=== PATIENT | female | born 1945 | race Caucasian/White ===

== ENCOUNTER → 2017-11-10 | Outpatient (CLI) | payer OTHER ==
[2016-06-26 12:42] VITALS: BP 162/91
--- NOTE | 2017-11-10 11:19 | RAD ---
HISTORY: Chronic knee pain. Study: Three views of the left knee. Comparison: None. Findings: Moderate tricompartmental osteoarthritis. Moderate-sized knee effusion. No acute fracture dislocation . IMPRESSION: Chronic findings as above. Reported By:
--- NOTE | 2017-11-10 11:20 | RAD ---
HISTORY: Low back pain. Radiculopathy. Study: Lumbar spine with obliques Comparison: MRI scan 01/17/2014, plain films 10/28/2016 Findings: Mild convex left lumbar scoliosis is noted. Hxub-[id number] osteopenia is noted. Five lumbar type vertebra present. Moderate lateral spurring is noted predominating on the right. Agol-yt-npvlldhy f acet arthropathy is noted throughout with moderate at L4/L5 and L5/S1. Mild degenerative changes pre sent in the sacroiliac joints. The lateral view demonstrates moderate anterior wedging of L3, unchan ged. Moderate disc space narrowing is noted at L3/L4. Mild anterior spurring is present multiple le vels. No pars defects are identified. Moderate vascular calcification is noted. IMPRESSION: 1. Lumbar spondylosis as described above. 2. No acute bony abnormalities are identified. Reported By:
--- NOTE | 2017-11-10 11:20 | RAD ---
HISTORY: Chronic right knee pain. Study: Three views of the right knee. Comparison: Right knee series dated November 27, 2013. Findings: Moderate tricompartmental osteoarthritis. No significant knee effusion. No acute fracture or dislocat ion. IMPRESSION: Chronic findings as above. Reported By:
== END ==
LOC: RAD 09:44
PROVIDERS: ATTEND Nurse Practitioner Family
DX: M54.17 Radiculopathy, lumbosacral region (principal); M25.561 Pain in right knee; M25.562 Pain in left knee
CPT/HCPCS: 72110; 73564

== ENCOUNTER 2023-08-26 16:26 | Observation (INO) ==
--- NOTE | 2023-08-26 17:10 | DR.CONMALE ---
HPI Time Seen Time Seen by Provider: 08/26/23 17:11 Complaint Chief Complaint Doctors Comments: 78-year-old female presents for evaluation. Complains of constipation for the past 3 weeks. Patient states not that unusual for her to go for a long time, but she is having increasing discomfort of her a bdomen and rectal area. She feels the stool may be too big to pass easily. Patient has chronic nausea, no change in that. She denies any vomiting. She denies any fever, chills, URI symptoms. No bladder issues. COVID-19 Coronavirus risk:travel/contact w/high risk person: No Has patient experienced Coronavirus symptoms: No Reviewed Nurses Notes Review: Yes Source History Provided: Patient Timing Onset of Chief Complaint: 08/05/23 PMH PMH Past Medical History: Yes Past Medical History: Anemia, Anxiety, Depression, Diabetes, Dyslipidemia, GERD and Hypertension Past Surgical History: Yes Surgical History: Appendectomy, Cholecystectomy, Hysterectomy and Ortho Surgery Family History History of Family Medical Conditions: Yes Family Medical History: Cancer, [place], Coronary Artery Disease and Hypertension Social History Does patient currently use any type of tobacco product: No Have you used tobacco products in the last 12 months: No Type of Tobacco Use: None Does any household member use tobacco: No Alcohol Use: None Do you use any recreational Drugs:: No Lives With: Family Lives Where: Home Travel Risk Coronavirus risk:travel/contact w/high risk person: No Has patient experienced Coronavirus symptoms: No Infectious screening In the last 2 months have you had wt loss of >10#?: NO Have you had fever, night sweats or hemotysis?: No Have you traveled outside the country in the last 6 months?: No Isolation: Standard ROS Review of Systems Constitutional: No Symptoms Reported Eyes: No Symptoms Reported ENTM: No Symptoms Reported Respiratoy: No Symptoms Reported Cardiovascular: No Symptoms Reported Gastrointestinal/Abdominal: See HPI Genitourinary: No Symptoms Reported Neurological: No Symptoms Reported Musculoskeletal: No Symptoms Reported Integumentary: No Symptoms Reported Hematologic/Lymphatic: No Symptoms Reported All Other Systems: Reviewed and Negative PE Vital Signs Vital Signs: Temp Pulse Resp BP Pulse Ox O2 Del Method 08/26/23 19:00 100 H 20 166/78 98 08/26/23 18:18 158/90 08/26/23 18:18 100 H 96 08/26/23 17:28 98.2 F 102 H 21 97 08/26/23 16:54 Room Air General General Appearance: Alert and In No Apparent Distress Eyes Eye exam: PERRL and EOMI Neck Neck Exam: Normal Inspection Respiratory Respiratory Exam: Normal Lung Sounds Bilat; negative Accessory Muscle Use or Respiratory Distress Cardiovascular Cardiovascular Exam: Regular Rate, Normal Rhythm and Normal Heart Sounds Gastrointestinal Abdominal Exam: Normal Bowel Sounds, Soft and Tenderness (across lower abdomen, no rebound. ) Extremities Extremities Exam: Normal Inspection; negative Edema Neurological Neurological Exam: Alert, Oriented X3 and CN II-XII Intact; negative Motor Sensory Deficit Skin Skin Exam: Warm and Dry COURSE Treatment Treatment: 78-year-old female presents with constipation for the past 3 weeks, now having abdominal and rectal discomfort. In no distress. 1739 - Rectal exam shows impacted stool. Partially disimpacted manually by me, with nurse shredded filler cutter operator. Cannnot remove all the stool, channel made for enema. Recommend hydration, given IV fluids, check baseline labs. Patient may require admission for further hydration and possible disimpaction via scope in the AM. 1837 - no good dramatic results with enema. Small amount of stool out. Patient with fecal impaction. Recommend admission for further hydration and possible more aggressive disimpaction in the a.m. via scope. Discussed with Dr. August, covering for Dr. Edwards, accepts admission. Consulted with Dr Jensen, will see in the am. Will order a CT of the abd/pelvis, with PO/IV contrast, to r/o underlying pathology, & hopefully be therapeutic with the oral contrast. ROR Labs Reviewed Laboratory Results Reviewed?: Yes 08/26/23 18:10 08/26/23 18:10 Laboratory: WBC 13.9 X10^3/uL (3.6-10.0) H 08/26/23 18:10 RBC 4.49 X10^6/uL (3.5-5.4) 08/26/23 18:10 Hgb 13.2 g/dL (12.0-16.0) 08/26/23 18:10 Hct 40.6 % (36.0-47.0) 08/26/23 18:10 MCV 90.4 fL (80.0-100.0) 08/26/23 18:10 MCH 29.5 pg (27.0-34.0) 08/26/23 18:10 MCHC 32.6 g/dL (33.0-35.0) L 08/26/23 18:10 RDW 13.1 % (11.6-16.5) 08/26/23 18:10 Plt Count 397 X10^3/uL (150.0-450.0) 08/26/23 18:10 MPV 7.3 fL (7.4-11.0) L 08/26/23 18:10 Neut % (Auto) 81.4 % (42.0-75.0) H 08/26/23 18:10 Lymph % (Auto) 12.4 % (21.0-51.0) L 08/26/23 18:10 [place] % (Auto) 5.4 % (0.0-13.0) 08/26/23 18:10 Eos % (Auto) 0.2 % (0.9-2.9) L 08/26/23 18:10 Baso % (Auto) 0.6 % (0.2-1.0) 08/26/23 18:10 Neut # (Auto) 11.3 x10^3/uL (2.2-4.8) H 08/26/23 18:10 Lymph # (Auto) 1.7 X10^3/uL (1.3-2.9) 08/26/23 18:10 [place] # (Auto) 0.8 x10^3/uL (0.3-0.8) 08/26/23 18:10 Eos # (Auto) 0.0 x10^3/uL (0.0-0.2) 08/26/23 18:10 Baso # (Auto) 0.1 X10^3/uL (0.0-0.1) 08/26/23 18:10 Absolute Nucleated RBC 0.0 /100WBC 08/26/23 18:10 Sodium 140 mmol/L (136-145) 08/26/23 18:10 Corrected Sodium TNP 08/26/23 18:10 Potassium 4.2 mmol/L (3.5-5.1) 08/26/23 18:10 Chloride 104 mmol/L (98-107) 08/26/23 18:10 Carbon Dioxide 28.7 mmol/L (21-32) 08/26/23 18:10 BUN 18 mg/dL (7-18) 08/26/23 18:10 Creatinine 0.90 mg/dL (0.55-1.02) 08/26/23 18:10 Est GFR (MDRD) Af Amer > 60 (>60) 08/26/23 18:10 Est GFR (MDRD) Non-Af > 60 (>60) 08/26/23 18:10 Glucose 102 mg/dL (65-99) H 08/26/23 18:10 Calcium 9.2 mg/dL (8.5-10.1) 08/26/23 18:10 Corrected Calcium 10.1 mg/dL (8.5-10.1) 08/26/23 18:10 Total Bilirubin 0.50 mg/dL (0.2-1.0) 08/26/23 18:10 AST 33 Units/L (15-37) 08/26/23 18:10 ALT 39 Units/L (12-78) 08/26/23 18:10 Alkaline Phosphatase 159 Units/L (46-116) H 08/26/23 18:10 Total Protein 6.8 g/dL (6.4-8.2) 08/26/23 18:10 Albumin 2.9 g/dL (3.4-5.0) L 08/26/23 18:10 Globulin 3.9 g/dL (2.5-4.5) 08/26/23 18:10 Albumin/Globulin Ratio 0.7 Ratio (1.1-2.1) L 08/26/23 18:10 Lipase 23 Units/L (16-77) 08/26/23 18:10 Labs acceptable. Opioid Opioid Risk Tool Age (Josh box if 16-45): No History of Preadolescent Sexual Abuse: No Total: 0 Total Score Risk Category: Low Risk Copyright: Laron BRICENO predicting aberrant behaviors Discharge Plan Diagnosis Discharge Problem: Fecal impaction of colon Discharge Plan Patient Disposition: 09 ADMITTED INPATIENT Condition: Stable Prescriptions: No Action montelukast 10 mg tablet 10 mg PO QDAY Qty: 90 0RF pregabalin 75 mg capsule 75 mg PO QDAY 30 Days Qty: 30 0RF duloxetine 60 mg capsule,delayed release(DR/EC) 60 mg PO BID Qty: 60 3RF famotidine 20 mg tablet 20 mg PO BID PRN (Reason: gerd) Qty: 60 3RF Linzess 72 mcg capsule 72 mcg PO QDAY 30 Days Qty: 30 3RF verapamil 120 mg tablet extended release 120 mg PO BID 90 Days Qty: 180 0RF Rx Instructions: FreeTextSi Tablet ER two times daily; Refills: 1; Provider: Grace Barrios oxybutynin chloride 10 mg tablet extended release 24hr 10 mg PO QDAY Qty: 90 1RF hydrocodone-acetaminophen 10-325 mg tablet 1 tab PO TID MDD 3 PRN (Reason: pain) 30 Days Qty: 90 0RF atorvastatin 40 mg tablet 40 mg PO QPM Qty: 90 1RF buspirone 5 mg tablet 5 mg PO BID 30 Days Qty: 60 0RF Rx Instructions: FreeTextSi (one) Tablet two times daily; Refills: 1; Provider: Grace Barrios lisinopril 20 mg tablet 20 mg PO QDAY Qty: 90 0RF Mounjaro 7.5 mg/0.5 mL pen injector 7.5 mg SUBCUT WEEKLY Patient Comments: [NO ORIGINAL SIG] tizanidine 4 mg tablet 4 mg PO BID PRN Health Concerns: Post Hospitalization: new medications and changes needed to prevent readmission or further decline. Pt educated and given instructions on all concerns. Plan of Treatment: Continue with present treatment and follow up plan. Pt is to keep follow up appointment as instructed and take medications as ordered. Orders to Discharge Patient Discharge Orders: Transfer (Routine); Ordered 08/26/23 Ordered By: Logan Nieto Follow ups/Referrals Follow ups/Referrals: Denis Edwards [Primary Care Provider] - 3 days
[2023-08-26] MEDS ORDERED: FLEET ENEMA ADULT ONE (17:38)
[2023-08-26] MEDS ORDERED: NS 1,000 ML IV 1,000 ML ONE (17:41)
[2023-08-26] MEDS: FLEET ENEMA ADULT PR ONE (17:45)
[2023-08-26] MEDS: NS 1,000 ML IV 1,000 ML IV ONE (18:00)
[2023-08-26 18:22] LABS: BASOPHILS # (AUTO) 0.1 X10^3/uL (0.0-0.1); BASOPHILS % (AUTO) 0.6 % (0.2-1.0); EOSINOPHILS % (AUTO) 0.2 % (0.9-2.9); HEMATOCRIT 40.6 % (36.0-47.0); HEMOGLOBIN 13.2 g/dL (12.0-16.0); LYMPHOCYTES # (AUTO) 1.7 X10^3/uL (1.3-2.9); LYMPHOCYTES % (AUTO) 12.4 % (21.0-51.0); MEAN CORPUSCULAR HEMOGLOBIN 29.5 pg (27.0-34.0); MEAN CORPUSCULAR HGB CONC 32.6 g/dL (33.0-35.0); MEAN CORPUSCULAR VOLUME 90.4 fL (80.0-100.0); MEAN PLATELET VOLUME 7.3 fL (7.4-11.0); MONOCYTES # (AUTO) 0.8 x10^3/uL (0.3-0.8); MONOCYTES % (AUTO) 5.4 % (0.0-13.0); NEUTROPHILS # (AUTO) 11.3 x10^3/uL (2.2-4.8); NEUTROPHILS % (AUTO) 81.4 % (42.0-75.0); PLATELET COUNT 397 X10^3/uL (150.0-450.0); RED BLOOD COUNT 4.49 X10^6/uL (3.5-5.4); RED CELL DISTRIBUTION WIDTH 13.1 % (11.6-16.5); WHITE BLOOD COUNT 13.9 X10^3/uL (3.6-10.0)
[2023-08-26 18:30] LABS: ALANINE AMINOTRANSFERASE 39 Units/L (12-78); ALBUMIN 2.9 g/dL (3.4-5.0); ALKALINE PHOSPHATASE 159 Units/L (46-116); ASPARTATE AMINO TRANSFERASE 33 Units/L (15-37); BLOOD UREA NITROGEN 18 mg/dL (7-18); CALCIUM 9.2 mg/dL (8.5-10.1); CARBON DIOXIDE 28.7 mmol/L (21-32); CHLORIDE 104 mmol/L (98-107); COR CA(FOR HYPOALB) 10.1 mg/dL (8.5-10.1); GLUCOSE 102 mg/dL (65-99); LIPASE 23 Units/L (16-77); POTASSIUM 4.2 mmol/L (3.5-5.1); SODIUM 140 mmol/L (136-145); TOTAL PROTEIN 6.8 g/dL (6.4-8.2); eGFR NON BLACK RACES > 60 (>60)
[2023-08-26] MEDS ORDERED: BUSPIRONE 5 MG PO SCH (21:46)
[2023-08-26] MEDS ORDERED: CONSULT PHARMACY - POTASSIUM & MAGNESIUM XX SCH (21:46)
[2023-08-26] MEDS: LIPITOR TAB 40 MG PO SCH (22:14)
[2023-08-26] MEDS: D5 1/2 NS 1,000 ML 1,000 ML IV SCH (22:15)
[2023-08-26] MEDS: CYMBALTA PO SCH (22:15)
--- NOTE | 2023-08-26 22:39 | CT ---
EXAM: CT ABDOMEN AND PELVIS WITH INTRAVENOUS CONTRAST HISTORY: No bowel movement x 21 days. Impacted. TECHNIQUE: Spiral axial CT images are obtained through the abdomen and pelvis with the administration of oral contrast and intravenous contrast. Additional coronal and sagittal reformatted images are re constructed. DOSIMETRY: Total DLP 221.24 mGycm; CTDI 4.14 mGy COMPARISON: None available. FINDINGS: GASTROINTESTINAL TRACT: Status post gastric bypass surgery. No evidence of gross anastomotic dehisce nce seen. There is an approximately 4.7 cm AP by 4.1 cm transverse by 4.3 cm CC hiatal hernia contai nena food debris. Axial image 13; coronal image 28. Abundant fecal material is seen within the large bowel loops and up to 8 cm dilated rectum consistent with constipation and fecal retention. There i s no evidence for bowel herniation, bowel obstruction, appendicitis, colitis or diverticulitis. GENITOURINARY SYSTEM: The kidneys are unremarkable. There is no ureteral calculus or stigmata of obst ructive uropathy. The urinary bladder is grossly unremarkable for a non-dedicated exam. CT ABDOMEN: Status post cholecystectomy. Severe aortoiliac atherosclerotic disease, without aneurysm formation or dissection. Approximately 2.4 cm AP by 1.4 cm transverse by 2.3 cm CC nonspecific righ t adrenal nodule (56 HU), which may represent an adrenal adenoma; DDX includes adrenal adenocarcinoma , metastatic lesion, and pheochromocytoma. Consider follow-up evaluation with dedicated adrenal MRI for further characterization as clinically warranted. The liver, spleen, pancreas, left adrenal gland , and inferior vena cava are within normal limits for a CT scan. There is no intra-abdominal or retr operitoneal lymphadenopathy, free fluid, or free air seen. No abdominal herniation is noted. CT PELVIS: No pelvic sidewall or inguinal lymphadenopathy is seen. No inguinal herniation is noted. No free fluid or free air is seen. BONES AND JOINTS: Severe multilevel DDD is seen throughout the distal thoracic and lumbar spine with lumbar levoscoliosis. Moderate osteoarthritis is seen in both hips. The visualized bony structures are within normal limits. LUNG BASES: The lung bases are clear. There is severe coronary atherosclerosis. There are severe ao rtic and mitral annular calcifications. IMPRESSION: 1. No gross acute abnormality seen. 2. No evidence for pyelonephritis, renal stone disease or obstructive uropathy. 3. Approximately 4.7 cm AP by 4.1 cm transverse by 4.3 cm CC hiatal hernia containing food debris. Axial image 13; coronal image 28. 4. Abundant fecal material is seen within the large bowel loops and up to 8 cm dilated rectum consis tent with constipation and fecal retention. 5. No evidence for bowel herniation, bowel obstruction, appendicitis, colitis or diverticulitis. 6. No free fluid, free air, or lymphadenopathy seen. 7. Approximately 2.4 cm AP by 1.4 cm transverse by 2.3 cm CC nonspecific right adrenal nodule (56 HU ), which may represent an adrenal adenoma; DDX includes adrenal adenocarcinoma, metastatic lesion, an d pheochromocytoma. Axial image 23; coronal image 32. Consider follow-up evaluation with dedicated adrenal MRI for further characterization as clinically warranted. 8. Severe multilevel DDD is seen throughout the distal thoracic and lumbar spine with lumbar levosco liosis. THIS IS AN ELECTRONICALLY VERIFIED FINAL REPORT 08/26/2023 10:35 PM - Electronically signed by Jackie Martinez
[2023-08-26 23:21] VITALS: BMI 25.9
[2023-08-26] MEDS: BUSPAR PO SCH (23:27)
[2023-08-26] MEDS: ZANAFLEX PO PRN (23:27)
[2023-08-26 23:50] LABS: BILIRUBIN,URINE NEGATIVE (NEGATIVE); BLOOD/HEMOGLOBIN,URINE NEGATIVE (NEGATIVE); GLUCOSE, URINE NEGATIVE (NEGATIVE); KETONES,URINE 1+ (NEGATIVE); LEUKOCYTE ESTERASE ,URINE NEGATIVE (NEGATIVE); NITRITES,URINE NEGATIVE (NEGATIVE); PROTEIN,URINE NEGATIVE (NEGATIVE); UROBILINOGEN,URINE NORMAL (NORMAL)
[2023-08-27 00:03] LABS: APPEARANCE,URINE CLEAR (CLEAR); COLOR,URINE YELLOW (YELLOW)
[2023-08-27] MEDS: CALAN SR 120 MG PO SCH (00:44)
[2023-08-27 05:43] LABS: BASOPHILS % (AUTO) 0.3 % (0.2-1.0); EOSINOPHILS % (AUTO) 0.4 % (0.9-2.9); HEMOGLOBIN 11.3 g/dL (12.0-16.0); LYMPHOCYTES # (AUTO) 2.1 X10^3/uL (1.3-2.9); LYMPHOCYTES % (AUTO) 21.6 % (21.0-51.0); MEAN CORPUSCULAR HEMOGLOBIN 29.8 pg (27.0-34.0); MEAN CORPUSCULAR HGB CONC 33.2 g/dL (33.0-35.0); MEAN CORPUSCULAR VOLUME 89.6 fL (80.0-100.0); MEAN PLATELET VOLUME 7.7 fL (7.4-11.0); MONOCYTES # (AUTO) 0.6 x10^3/uL (0.3-0.8); MONOCYTES % (AUTO) 6.3 % (0.0-13.0); NEUTROPHILS # (AUTO) 6.9 x10^3/uL (2.2-4.8); NEUTROPHILS % (AUTO) 71.4 % (42.0-75.0); PLATELET COUNT 371 X10^3/uL (150.0-450.0); RED BLOOD COUNT 3.79 X10^6/uL (3.5-5.4); RED CELL DISTRIBUTION WIDTH 13.1 % (11.6-16.5); WHITE BLOOD COUNT 9.7 X10^3/uL (3.6-10.0)
[2023-08-27 05:48] LABS: ALANINE AMINOTRANSFERASE 26 Units/L (12-78); ALBUMIN 2.2 g/dL (3.4-5.0); ALKALINE PHOSPHATASE 124 Units/L (46-116); ASPARTATE AMINO TRANSFERASE 20 Units/L (15-37); BLOOD UREA NITROGEN 11 mg/dL (7-18); CALCIUM 8.7 mg/dL (8.5-10.1); CARBON DIOXIDE 29.4 mmol/L (21-32); CHLORIDE 103 mmol/L (98-107); COR CA(FOR HYPOALB) 10.1 mg/dL (8.5-10.1); CREATININE 0.59 mg/dL (0.55-1.02); GLUCOSE 85 mg/dL (65-99); POTASSIUM 3.4 mmol/L (3.5-5.1); SODIUM 137 mmol/L (136-145); TOTAL PROTEIN 5.4 g/dL (6.4-8.2); eGFR NON BLACK RACES > 60 (>60)
[2023-08-27] MEDS ORDERED: CONSULT PHARMACY - POTASSIUM & MAGNESIUM XX SCH (07:00)
[2023-08-27] MEDS ORDERED: ZESTRIL TAB 20 MG ONE (08:07)
[2023-08-27] MEDS: D5 1/2 NS + KCL 20 MEQ/L 1,000 ML IV SCH (08:35)
[2023-08-27] MEDS: NS 100 ML IV 100 ML ONE (08:36)
[2023-08-27] MEDS: OMNIPAQUE 350 mg/mL 100 mL BTL 100 ML ONE (08:36)
[2023-08-27] MEDS: ZESTRIL TAB 20 MG PO SCH (08:37)
[2023-08-27] MEDS: LYRICA CAP 75 mg PO SCH (08:37)
[2023-08-27] MEDS: OXYBUTYNIN CHLORIDE ER PO SCH (08:37)
[2023-08-27] MEDS: SINGULAIR TAB 10 MG PO SCH (08:37)
[2023-08-27] MEDS: SUPREP BOWEL PREP KIT PO SCH (13:11)
[2023-08-27] MEDS: LINZESS PO SCH (13:12)
[2023-08-27] MEDS ORDERED: VISTARIL PO PRN (17:45)
[2023-08-27] MEDS: TYLENOL 325 MG TAB PO PRN (18:16)
[2023-08-28] MEDS ORDERED: HIBICLENS WASH ONE (03:45)
[2023-08-28] MEDS: SUPREP BOWEL PREP KIT PO SCH (05:02)
[2023-08-28] MEDS: HIBICLENS WASH EXT ONE (05:02)
[2023-08-28 05:28] LABS: BASOPHILS % (AUTO) 0.2 % (0.2-1.0); EOSINOPHILS # (AUTO) 0.1 x10^3/uL (0.0-0.2); EOSINOPHILS % (AUTO) 1.8 % (0.9-2.9); HEMATOCRIT 33.1 % (36.0-47.0); HEMOGLOBIN 10.9 g/dL (12.0-16.0); LYMPHOCYTES # (AUTO) 2.2 X10^3/uL (1.3-2.9); LYMPHOCYTES % (AUTO) 31.3 % (21.0-51.0); MEAN CORPUSCULAR HEMOGLOBIN 29.5 pg (27.0-34.0); MEAN CORPUSCULAR VOLUME 89.4 fL (80.0-100.0); MEAN PLATELET VOLUME 7.6 fL (7.4-11.0); MONOCYTES # (AUTO) 0.6 x10^3/uL (0.3-0.8); MONOCYTES % (AUTO) 9.3 % (0.0-13.0); NEUTROPHILS % (AUTO) 57.4 % (42.0-75.0); PLATELET COUNT 382 X10^3/uL (150.0-450.0); RED CELL DISTRIBUTION WIDTH 13.2 % (11.6-16.5)
[2023-08-28 05:41] LABS: ALANINE AMINOTRANSFERASE 34 Units/L (12-78); ALBUMIN 2.2 g/dL (3.4-5.0); ALKALINE PHOSPHATASE 115 Units/L (46-116); ASPARTATE AMINO TRANSFERASE 38 Units/L (15-37); BLOOD UREA NITROGEN 7 mg/dL (7-18); CALCIUM 8.5 mg/dL (8.5-10.1); CARBON DIOXIDE 26.2 mmol/L (21-32); CHLORIDE 106 mmol/L (98-107); COR CA(FOR HYPOALB) 9.9 mg/dL (8.5-10.1); CREATININE 0.67 mg/dL (0.55-1.02); GLUCOSE 82 mg/dL (65-99); MAGNESIUM 1.5 mg/dL (2.0-2.9); POTASSIUM 3.1 mmol/L (3.5-5.1); SODIUM 139 mmol/L (136-145); TOTAL PROTEIN 5.4 g/dL (6.4-8.2); eGFR NON BLACK RACES > 60 (>60)
[2023-08-28] MEDS ORDERED: CONSULT PHARMACY - POTASSIUM & MAGNESIUM XX SCH ×2 (07:00→12:00)
--- NOTE | 2023-08-28 08:18 | DR.H&P ---
H&P History & Physical for Day of: H&P Date: 08/27/23 Chief Complaint Chief Complaint: constipation Allergies Allergies Allergy/AdvReac Type Severity Reaction Status Date / Time cefaclor [Ceclor] Allergy Unknown Verified 08/13/23 09:19 metoclopramide [From Reglan] Allergy Unknown Verified 08/13/23 09:19 Penicillins Allergy Unknown Rash Verified 08/13/23 09:19 pentazocine [From Talwin] Allergy Unknown Verified 08/13/23 09:19 History of Present Illness History of Present Illness: Pt is a 78 year old female presenting with constipation and fecal impaction. She reports symptoms for the past day. Labs/imaging: Wbc 9.7, 11.3, Plt 371, Na 137, K 3.4, Creatinine 0.59, Glucose 85, UA negative, CT abdomen and pelvis was obtained that revealed: Abundant fecal material is seen within the large bowel loops and up to 8 cm dilated rectum consistent with constipation and fecal retention. In the ED, fecal disimpaction was performed with some improvement. General surgery consulted, plan to have bowel prep and colonoscopy in the morning. Will follow up recommendations and continue medical management. Continue to closely monitor and follow up labs in the morning. Past Medical History Past Medical History: Anemia, Anxiety, Depression, Diabetes, Dyslipidemia, GERD and Hypertension Past Surgical History Surgical History: Hysterectomy, Joint Replacement, Weight Loss Surgery and Other Family History Family Medical History: Diabetes Mellitus, Cancer and Hypertension Social History Does patient currently use any type of tobacco product: No Have you used tobacco products in the last 12 months: No Type of Tobacco Use: None Does any household member use tobacco: No Alcohol Use: None Drug Use: None Medications Home Medications: Home Medications Medication Instructions Recorded Confirmed Type tirzepatide 7.5 mg/0.5 mL 7.5 mg subcut WEEKLY 08/26/23 08/26/23 History subcutaneous pen injector (Nazario) tizanidine 4 mg tablet 4 mg PO BID PRN 08/26/23 08/26/23 History Labs 08/28/23 04:40 08/28/23 04:40 Labs: Laboratory WBC 9.7 X10^3/uL (3.6-10.0) 08/27/23 05:05 RBC 3.79 X10^6/uL (3.5-5.4) 08/27/23 05:05 Hgb 11.3 g/dL (12.0-16.0) L 08/27/23 05:05 Hct 34.0 % (36.0-47.0) L 08/27/23 05:05 MCV 89.6 fL (80.0-100.0) 08/27/23 05:05 MCH 29.8 pg (27.0-34.0) 08/27/23 05:05 MCHC 33.2 g/dL (33.0-35.0) 08/27/23 05:05 RDW 13.1 % (11.6-16.5) 08/27/23 05:05 Plt Count 371 X10^3/uL (150.0-450.0) 08/27/23 05:05 MPV 7.7 fL (7.4-11.0) 08/27/23 05:05 Neut % (Auto) 71.4 % (42.0-75.0) 08/27/23 05:05 Lymph % (Auto) 21.6 % (21.0-51.0) 08/27/23 05:05 [place] % (Auto) 6.3 % (0.0-13.0) 08/27/23 05:05 Eos % (Auto) 0.4 % (0.9-2.9) L 08/27/23 05:05 Baso % (Auto) 0.3 % (0.2-1.0) 08/27/23 05:05 Neut # (Auto) 6.9 x10^3/uL (2.2-4.8) H 08/27/23 05:05 Lymph # (Auto) 2.1 X10^3/uL (1.3-2.9) 08/27/23 05:05 [place] # (Auto) 0.6 x10^3/uL (0.3-0.8) 08/27/23 05:05 Eos # (Auto) 0.0 x10^3/uL (0.0-0.2) 08/27/23 05:05 Baso # (Auto) 0.0 X10^3/uL (0.0-0.1) 08/27/23 05:05 Absolute Nucleated RBC 0.0 /100WBC 08/27/23 05:05 Sodium 137 mmol/L (136-145) 08/27/23 05:05 Corrected Sodium TNP 08/27/23 05:05 Potassium 3.4 mmol/L (3.5-5.1) L 08/27/23 05:05 Chloride 103 mmol/L (98-107) 08/27/23 05:05 Carbon Dioxide 29.4 mmol/L (21-32) 08/27/23 05:05 BUN 11 mg/dL (7-18) 08/27/23 05:05 Creatinine 0.59 mg/dL (0.55-1.02) 08/27/23 05:05 Est GFR (MDRD) Af Amer > 60 (>60) 08/27/23 05:05 Est GFR (MDRD) Non-Af > 60 (>60) 08/27/23 05:05 Glucose 85 mg/dL (65-99) 08/27/23 05:05 POC Glucose (mg/dL) 153 mg/dL (65-99) H 08/27/23 11:20 Calcium 8.7 mg/dL (8.5-10.1) 08/27/23 05:05 Corrected Calcium 10.1 mg/dL (8.5-10.1) 08/27/23 05:05 Magnesium 1.4 mg/dL (2.0-2.9) L 08/27/23 05:05 Total Bilirubin 0.40 mg/dL (0.2-1.0) 08/27/23 05:05 AST 20 Units/L (15-37) 08/27/23 05:05 ALT 26 Units/L (12-78) 08/27/23 05:05 Alkaline Phosphatase 124 Units/L (46-116) H 08/27/23 05:05 Total Protein 5.4 g/dL (6.4-8.2) L 08/27/23 05:05 Albumin 2.2 g/dL (3.4-5.0) L 08/27/23 05:05 Globulin 3.2 g/dL (2.5-4.5) 08/27/23 05:05 Albumin/Globulin Ratio 0.7 Ratio (1.1-2.1) L 08/27/23 05:05 Lipase 23 Units/L (16-77) 08/26/23 18:10 Specimen Type Clean catch urine 08/26/23 23:40 Urine Color Yellow (YELLOW) 08/26/23 23:40 Urine Appearance Clear (CLEAR) 08/26/23 23:40 Urine pH 5.0 (5.0 - 8.0) 08/26/23 23:40 Ur Specific Soldier 1.015 (1.000-1.030) 08/26/23 23:40 Urine Protein Negative (NEGATIVE) 08/26/23 23:40 Urine Glucose (UA) Negative (NEGATIVE) 08/26/23 23:40 Urine Ketones 1+ (NEGATIVE) 08/26/23 23:40 Urine Blood Negative (NEGATIVE) 08/26/23 23:40 Urine Nitrite Negative (NEGATIVE) 08/26/23 23:40 Urine Bilirubin Negative (NEGATIVE) 08/26/23 23:40 Urine Urobilinogen Normal (NORMAL) 08/26/23 23:40 Ur Leukocyte Esterase Negative (NEGATIVE) 08/26/23 23:40 Review of Systems Constitutional: No Symptoms Reported Eyes: No Symptoms Reported ENT: No Symptoms Reported Respiratory: No Symptoms Reported Cardiovascular: No Symptoms Reported Gastrointestinal: Abdominal Pain and Constipation Genitourinary: No Symptoms Reported Musculoskeletal: No Symptoms Reported Skin: No Symptoms Reported Neurological: No Symptoms Reported Physical Exam Vital Signs: Vital Signs Temperature 98.7 F Temperature 98.4 F Pulse Rate [Right] 73 Pulse Rate [Right] 73 Respiratory Rate 20 Respiratory Rate 20 Blood Pressure [Right Arm] 116/59 Blood Pressure [Right Arm] 134/65 O2 Sat by Pulse Oximetry 96 O2 Sat by Pulse Oximetry 95 Oriented: Normal Eyes: Normal Ear: Normal Nose: Normal Throat: Normal Respiratory: Clear Throughout Cardiovascular: Normal : Normal Auscultation: Bowel Sounds: Normal Palpation: Normal Tenderness: Mild Skin: Normal Musculoskeletal: Normal Psychiatric: Normal Mood Description: Calm and Appropriate Affect: Normal Speech Pattern: Clear and Appropriate Assessment/Plan (1) Fecal impaction of colon: Narrative Support Text: General surgery consulted Bowel prep Plan for colonoscopy in the morning. Status: Acute Review H&P Reviewed: Yes Patient was examined?: Yes
[2023-08-28] MEDS ORDERED: ZESTRIL TAB 20 MG ONE (08:26)
[2023-08-28] MEDS: MAG-OX TAB PO SCH (08:49)
[2023-08-28] MEDS: K-DUR TAB 20 MEQ PO SCH (08:49)
[2023-08-28] MEDS ORDERED: LINZESS PO SCH (09:00)
[2023-08-28] MEDS: LR 1,000 ML IV 1,000 ML IV ONE (11:31)
[2023-08-28] MEDS: DIPRIVAN VIAL 20 ML ONE ×2 (11:36→11:59)
[2023-08-28] MEDS ORDERED: STERILE WATER IRRIGATION IR ONE (11:55)
[2023-08-28] MEDS ORDERED: D5 1/2 NS + KCL 20 MEQ/L 1,000 ML with MAGNESIUM SULFATE 50% INJ VIAL 1 G IV SCH (13:00)
[2023-08-28 13:53] VITALS: RESP 18
[2023-08-28 13:56] VITALS: BP 145/67; PULSE 68; TEMP 97.8; O2SAT 97
--- NOTE | 2023-09-01 07:29 | W.DIS.FURT ---
Summary of Discharge Discharge Summary of Date Date of Exam: 08/28/23 Admission Date Date of Admission: 08/26/23 Admission Diagnosis Patient Problems (Updated 08/28/23 @ 12:47 by Denis Edwards) Fecal impaction of colon (Acute) K56.41 Hospital Course: Pt is a 78 year old female admitted for constipation and fecal impaction. Her hospital/treatment course included disimpaction and bowel prep. General surgery consulted, had colonoscopy in the morning and biopsies taken. Pt responded well to treatment and symptoms significantly improved. Pt was discharged in stable condition. Rx Lyric. Instructed to follow up with pcp and general surgery in 1-2 weeks. Vital Signs: Vital Signs (72 hours) 08/26/23 16:54 08/26/23 17:28 08/26/23 18:18 Temperature 98.2 F Pulse Rate 102 H 100 H Pulse Rate [Right] Respiratory Rate 21 Blood Pressure Blood Pressure [Right Arm] O2 Sat by Pulse Oximetry 97 96 Oxygen Delivery Method Room Air FIO2% 08/26/23 18:18 08/26/23 19:00 08/26/23 19:30 Temperature Pulse Rate 100 H 98 H Pulse Rate [Right] Respiratory Rate 20 20 Blood Pressure 158/90 166/78 168/86 Blood Pressure [Right Arm] O2 Sat by Pulse Oximetry 98 98 Oxygen Delivery Method Room Air FIO2% 08/26/23 22:00 08/26/23 23:55 08/26/23 23:00 Temperature 98.8 F 98.5 F Pulse Rate Pulse Rate [Right] 109 H 87 Respiratory Rate 20 18 Blood Pressure Blood Pressure [Right Arm] 165/76 98/62 O2 Sat by Pulse Oximetry 97 96 Oxygen Delivery Method Room Air Room Air Room Air FIO2% 21 08/27/23 04:00 08/27/23 07:57 08/27/23 08:38 Temperature 98.9 F 98.4 F Pulse Rate Pulse Rate [Right] 98 H 73 Respiratory Rate 20 20 Blood Pressure Blood Pressure [Right Arm] 111/61 134/65 O2 Sat by Pulse Oximetry 94 L 95 Oxygen Delivery Method Room Air Room Air Room Air FIO2% 21 08/27/23 12:00 08/27/23 16:00 08/27/23 18:16 Temperature 98.7 F 97.3 F L Pulse Rate Pulse Rate [Right] 73 64 Respiratory Rate 20 20 20 Blood Pressure Blood Pressure [Right Arm] 116/59 105/55 O2 Sat by Pulse Oximetry 96 95 Oxygen Delivery Method Room Air Room Air FIO2% 08/27/23 19:00 08/27/23 20:00 08/27/23 19:16 Temperature 98.9 F Pulse Rate Pulse Rate [Right] 79 Respiratory Rate 20 20 Blood Pressure Blood Pressure [Right Arm] 143/63 O2 Sat by Pulse Oximetry 98 Oxygen Delivery Method Room Air Room Air FIO2% 21 08/28/23 00:00 08/28/23 04:00 08/28/23 07:00 Temperature 97.9 F 97.9 F Pulse Rate Pulse Rate [Right] 73 72 Respiratory Rate 18 20 Blood Pressure Blood Pressure [Right Arm] 161/78 113/60 O2 Sat by Pulse Oximetry 94 L 96 Oxygen Delivery Method Room Air Room Air Room Air FIO2% 21 Labs: Laboratory Last Values WBC 7.0 X10^3/uL (3.6-10.0) 08/28/23 04:40 RBC 3.70 X10^6/uL (3.5-5.4) 08/28/23 04:40 Hgb 10.9 g/dL (12.0-16.0) L 08/28/23 04:40 Hct 33.1 % (36.0-47.0) L 08/28/23 04:40 MCV 89.4 fL (80.0-100.0) 08/28/23 04:40 MCH 29.5 pg (27.0-34.0) 08/28/23 04:40 MCHC 33.0 g/dL (33.0-35.0) 08/28/23 04:40 RDW 13.2 % (11.6-16.5) 08/28/23 04:40 Plt Count 382 X10^3/uL (150.0-450.0) 08/28/23 04:40 MPV 7.6 fL (7.4-11.0) 08/28/23 04:40 Neut % (Auto) 57.4 % (42.0-75.0) 08/28/23 04:40 Lymph % (Auto) 31.3 % (21.0-51.0) 08/28/23 04:40 [place] % (Auto) 9.3 % (0.0-13.0) 08/28/23 04:40 Eos % (Auto) 1.8 % (0.9-2.9) 08/28/23 04:40 Baso % (Auto) 0.2 % (0.2-1.0) 08/28/23 04:40 Neut # (Auto) 4.0 x10^3/uL (2.2-4.8) 08/28/23 04:40 Lymph # (Auto) 2.2 X10^3/uL (1.3-2.9) 08/28/23 04:40 Norton # (Auto) 0.6 x10^3/uL (0.3-0.8) 08/28/23 04:40 Eos # (Auto) 0.1 x10^3/uL (0.0-0.2) 08/28/23 04:40 Baso # (Auto) 0.0 X10^3/uL (0.0-0.1) 08/28/23 04:40 Absolute Nucleated RBC 0.0 /100WBC 08/28/23 04:40 Sodium 139 mmol/L (136-145) 08/28/23 04:40 Corrected Sodium TNP 08/28/23 04:40 Potassium 3.1 mmol/L (3.5-5.1) L 08/28/23 04:40 Chloride 106 mmol/L (98-107) 08/28/23 04:40 Carbon Dioxide 26.2 mmol/L (21-32) 08/28/23 04:40 BUN 7 mg/dL (7-18) 08/28/23 04:40 Creatinine 0.67 mg/dL (0.55-1.02) 08/28/23 04:40 Est GFR (MDRD) Af Amer > 60 (>60) 08/28/23 04:40 Est GFR (MDRD) Non-Af > 60 (>60) 08/28/23 04:40 Glucose 82 mg/dL (65-99) 08/28/23 04:40 POC Glucose (mg/dL) 83 mg/dL (65-99) 08/28/23 05:30 Calcium 8.5 mg/dL (8.5-10.1) 08/28/23 04:40 Corrected Calcium 9.9 mg/dL (8.5-10.1) 08/28/23 04:40 Magnesium 1.5 mg/dL (2.0-2.9) L 08/28/23 04:40 Total Bilirubin 0.40 mg/dL (0.2-1.0) 08/28/23 04:40 AST 38 Units/L (15-37) H 08/28/23 04:40 ALT 34 Units/L (12-78) 08/28/23 04:40 Alkaline Phosphatase 115 Units/L (46-116) 08/28/23 04:40 Total Protein 5.4 g/dL (6.4-8.2) L 08/28/23 04:40 Albumin 2.2 g/dL (3.4-5.0) L 08/28/23 04:40 Globulin 3.2 g/dL (2.5-4.5) 08/28/23 04:40 Albumin/Globulin Ratio 0.7 Ratio (1.1-2.1) L 08/28/23 04:40 Lipase 23 Units/L (16-77) 08/26/23 18:10 Specimen Type Clean catch urine 08/26/23 23:40 Urine Color Yellow (YELLOW) 08/26/23 23:40 Urine Appearance Clear (CLEAR) 08/26/23 23:40 Urine pH 5.0 (5.0 - 8.0) 08/26/23 23:40 Ur Specific [place] 1.015 (1.000-1.030) 08/26/23 23:40 Urine Protein Negative (NEGATIVE) 08/26/23 23:40 Urine Glucose (UA) Negative (NEGATIVE) 08/26/23 23:40 Urine Ketones 1+ (NEGATIVE) 08/26/23 23:40 Urine Blood Negative (NEGATIVE) 08/26/23 23:40 Urine Nitrite Negative (NEGATIVE) 08/26/23 23:40 Urine Bilirubin Negative (NEGATIVE) 08/26/23 23:40 Urine Urobilinogen Normal (NORMAL) 08/26/23 23:40 Ur Leukocyte Esterase Negative (NEGATIVE) 08/26/23 23:40 Reason For Visit: FECAL IMPACTION OF COLON Discharge Date Discharge Date: 08/28/23 Discharge Diagnosis All Active Problems (Updated 08/28/23 @ 12:47 by Denis Edwards) Contusion of face, scalp and neck (Acute) Cervical sprain (Acute) Acute dehydration (Acute) Vertigo (Acute) Fecal impaction of colon (Acute) Toe ulcer (Acute) Flu vaccine need (Acute) Constipation (Acute) Rash in adult (Acute) Left groin pain (Acute) Acute pain of left thigh (Acute) Chest pain (Acute) Hypertension, uncontrolled (Acute) Contusion, knee (Acute) Plan of Treatment: Continue with present treatment and follow up plan. Pt is to keep follow up appointment as instructed and take medications as ordered. Discharge Medications Discharge Medications: cefaclor [Ceclor] Allergy (Unknown, Verified 08/13/23 09:19) metoclopramide [From Reglan] Allergy (Unknown, Verified 08/13/23 09:19) Penicillins Allergy (Unknown, Verified 08/13/23 09:19) Rash pentazocine [From Talwin] Allergy (Unknown, Verified 08/13/23 09:19) CONTINUE taking the following medications tirzepatide 7.5 mg/0.5 mL subcutaneous pen injector (Mounjaro) 7.5 mg subcut WEEKLY 08/26/23 [History] tizanidine 4 mg tablet 4 mg PO BID PRN 08/26/23 [History] New Prescriptions linaclotide 145 mcg capsule (Linzess) 145 mcg PO QDAY 30 days #30 caps 08/28/23 [Rx] Discharge Disposition Assessment: No acute distress noted at discharge. Discharge Plan Discharge Plan Hospital Course: Pt is a 78 year old female admitted for constipation and fecal impaction. Her hospital/treatment course included disimpaction and bowel prep. General surgery consulted, had colonoscopy in the morning and biopsies taken. Pt responded well to treatment and symptoms significantly improved. Pt was discharged in stable condition. Rx Linzess. Instructed to follow up with pcp and general surgery in 1-2 weeks. Patient Disposition: HOME, SELF-CARE Condition: Stable Health Concerns: Post Hospitalization: new medications and changes needed to prevent readmission or further decline. Pt educated and given instructions on all concerns. Care Plan Goals: Problem: Pain/Alteration in Comfort Goal: Improve/ Resolve Pain; Achieve Pain Tolerance Instructions: Take pain medications as prescribed. Contact your primary care provider if your pain is unrelieved or worsens. Follow up with primary care provider as directed. Plan of Treatment: Continue with present treatment and follow up plan. Pt is to keep follow up appointment as instructed and take medications as ordered. Assessment: No acute distress noted at discharge. Prescriptions: New Linzess 145 mcg capsule 145 mcg PO QDAY 30 Days Qty: 30 3RF Continued montelukast 10 mg tablet 10 mg PO QDAY Qty: 90 0RF pregabalin 75 mg capsule 75 mg PO QDAY 30 Days Qty: 30 0RF duloxetine 60 mg capsule,delayed release(DR/EC) 60 mg PO BID Qty: 60 3RF famotidine 20 mg tablet 20 mg PO BID PRN (Reason: gerd) Qty: 60 3RF verapamil 120 mg tablet extended release 120 mg PO BID 90 Days Qty: 180 0RF Rx Instructions: FreeTextSi Tablet ER two times daily; Refills: 1; Provider: Grace Barrios oxybutynin chloride 10 mg tablet extended release 24hr 10 mg PO QDAY Qty: 90 1RF hydrocodone-acetaminophen 10-325 mg tablet 1 tab PO TID MDD 3 PRN (Reason: pain) 30 Days Qty: 90 0RF atorvastatin 40 mg tablet 40 mg PO QPM Qty: 90 1RF buspirone 5 mg tablet 5 mg PO BID 30 Days Qty: 60 0RF Rx Instructions: FreeTextSi (one) Tablet two times daily; Refills: 1; Provider: Kemi Barrios lisinopril 20 mg tablet 20 mg PO QDAY Qty: 90 0RF Mounjaro 7.5 mg/0.5 mL pen injector 7.5 mg SUBCUT WEEKLY Patient Comments: [NO ORIGINAL SIG] tizanidine 4 mg tablet 4 mg PO BID PRN Discontinued Linzess 72 mcg capsule 72 mcg PO QDAY 30 Days Qty: 30 3RF Orders to Discharge Patient Discharge Orders: Discharge (Routine); Ordered 08/28/23 Ordered By: Denis Edwards Follow ups/Referrals Follow ups/Referrals: Denis Edwards [Primary Care Provider] - 09/03/23 3:40 pm ABIGAIL BARROW [STAFF PHYSICIAN] - 09/08/23 11:00 am Instructions Instructions: Abdominal Pain, Adult, Colonoscopy, Adult, Colonoscopy, Adult, Care After, [id number], Constipation, Adult, [id number], Fecal Impaction, Monitored Anesthesia Care, Care After Stand Alone Forms: Post Hospital Follow Up Care
== END 2023-08-28 13:50 | disposition home or self-care (01) ==
LOC: MED/SURG 16:26 → ER 16:26 → MED/SURG 21:38
PROVIDERS: ADMIT Internal Medicine; ATTEND Family Medicine
DX: K56.41 Fecal impaction; R10.84 Generalized abdominal pain